=== PATIENT | female | born 1965 | race Caucasian/White ===

== ENCOUNTER → 2017-01-03 | Outpatient (REF) | payer MEDICARE ==
[2017-01-03 18:17] LABS: ANION GAP 9 MEQ/L (8-16); BLOOD UREA NITROGEN 10 MG/DL (7-18); CALCIUM LEVEL 9.5 MG/DL (8.5-10.1); CARBON DIOXIDE LEVEL 31 MEQ/L (21-32); CHLORIDE LEVEL 101 MEQ/L (98-107); CHOLESTEROL LEVEL 190 MG/DL (<200); CREATININE FOR GFR 0.74 MG/DL (0.55-1.02); GLOMERULAR FILTRATION RATE > 60.0 (>51); GLUCOSE, FASTING 76 MG/DL (70-105); POTASSIUM SERUM 4.4 MEQ/L (3.5-5.1); SODIUM LEVEL 141 MEQ/L (136-145); TRIGLYCERIDES LEVEL 311 MG/DL (<150)
== END ==
LOC: M SFHCPLAZ 15:49
PROVIDERS: ATTEND Family Medicine
DX: E11.9 Type 2 diabetes mellitus without complications (principal); Z11.4 Encounter for screening for human immunodeficiency virus [HIV]; Z11.59 Encounter for screening for other viral diseases
CPT/HCPCS: 36415; 80048; 80061; 82043; 83036; 87389; G0463; G0472

== ENCOUNTER → 2017-02-27 | Outpatient (CLI) | payer MEDICARE ==
--- NOTE | 2017-02-27 15:33 | REP ---
PA and lateral chest: There are no comparisons. There is an [id number]-[id number]-Ffxl entering from the left subclavian approach with the tip in the superior vena cava. Cervical spine stabilization plate. The lung pereyra are clear. Cardiac size is normal. The ricardo, mediastinum, and bony thorax unremarkable. There are surgical clips in the abdominal right upper quadrant. Impression: There are no acute cardiopulmonary findings. Signed by Gold Thompson MD 02/27/2017 03:25 P
== END ==
LOC: M RAD 12:50
PROVIDERS: ATTEND Family Medicine
DX: R05 Cough (principal); Z12.4 Encounter for screening for malignant neoplasm of cervix; Z98.890 Other specified postprocedural states
CPT/HCPCS: 71020; G0101; G0123

== ENCOUNTER → 2017-07-09 | Outpatient (CLI) | payer MEDICARE ==
[2017-07-09 11:01] LABS: ESTIMATED AVERAGE GLUCOSE 140 MG/DL (60-110); HEMOGLOBIN A1c 6.5 %
== END ==
LOC: M LAB 09:27
DX: Z00.01 Encounter for general adult medical examination with abnormal findings (principal); E11.9 Type 2 diabetes mellitus without complications; M25.562 Pain in left knee; G89.4 Chronic pain syndrome; Z98.1 Arthrodesis status; M50.30 Other cervical disc degeneration, unspecified cervical region; M47.817 Spondylosis without myelopathy or radiculopathy, lumbosacral region; M47.815 Spondylosis without myelopathy or radiculopathy, thoracolumbar region
CPT/HCPCS: 72082

== ENCOUNTER → 2017-07-24 | Outpatient (REF) | payer MEDICARE ==
[2017-07-24 18:24] LABS: RHEUMATOID FACTOR QUANT < 10.0 IU/ML (0-15.0)
[2017-07-24 18:24] LABS: C REACTIVE PROTEIN QUANTITATIV 1.12 MG/DL (0.00-0.30)
[2017-07-24 18:28] LABS: TROPONIN I < 0.02 NG/ML (< 0.10)
[2017-07-24 20:39] LABS: ERYTHROCYTE SEDIMENTATION RATE 4 mm/hr (0-30)
== END ==
LOC: M SFHCPLAZ 14:56
DX: M13.0 Polyarthritis, unspecified (principal); R07.89 Other chest pain
CPT/HCPCS: 84484

== ENCOUNTER → 2017-07-24 | Outpatient (CLI) | payer MEDICARE | LOC: M RAD 16:07 | DX: R09.02 Hypoxemia (principal); I51.7 Cardiomegaly | CPT/HCPCS: 71046 ==

== ENCOUNTER → 2017-08-21 | Outpatient (REF) | payer MEDICARE ==
[2017-08-21 14:04] LABS: FERRITIN 19 NG/ML (8-252); IRON (FE) 71 UG/DL (50-170); PERCENT SATURATION 17.4 % (13.2-45.0); TOTAL IRON BINDING CAPACITY 409 UG/DL (250-450)
== END ==
LOC: M LAB REF 13:14
DX: D50.9 Iron deficiency anemia, unspecified (principal)
CPT/HCPCS: 83550